=== PATIENT | female | born 1950 | race Caucasian/White ===

== ENCOUNTER 2025-05-12 06:40 | Outpatient (CLI) | payer MEDICARE, SELFPAY ==
[2025-05-12 06:45] LABS: Hematocrit 40.9 % (37.0-47.0); Hemoglobin 12.6 g/dL (12.2-16.2); Immature Granulocytes % 0.5 %; Mean Corpuscular HGB Conc 30.8 g/dL (31.8-35.4); Mean Corpuscular Hemoglobin 26.5 pg (27.0-31.2); Mean Corpuscular Volume 85.9 fl (81-99); Nucleated Red Blood Cells % 0 %; Platelet Count 209 K/mm3 (142-424); Red Blood Count 4.76 M/mm3 (4.20-5.40); Red Cell Distribution Width-SD 62.7 fL; White Blood Count 5.6 K/mm3 (4.8-10.8)
[2025-05-12 07:11] LABS: Albumin Level 4.0 g/dl (3.5-5.0); Chloride 102 mmol/L (98-107)
[2025-05-12 07:12] LABS: Potassium 4.1 mmoL/L (3.5-5.1); Sodium 138 mmol/L (136-145)
[2025-05-12 07:14] LABS: Alanine Aminotransferase 11 U/L (12-78); Aspartate Amino Transferase 23 U/L (14-36); Blood Urea Nitrogen 17 mg/dl (7-17); Creatinine,Serum 0.90 mg/dl (0.52-1.04); Estimated Glomerular Filt Rate 62 ml/min (>60); GFR (African American) 74 ML/MIN (>60)
[2025-05-12 07:15] LABS: Albumin/Globulin Ratio 1.6 (1.1-1.8); Alkaline Phosphatase 111 U/L (38-126); Anion Gap 10.1 mEq/L (5-15); Bilirubin,Total 0.4 mg/dl (0.2-1.3); Calcium 9.2 mg/dl (8.4-10.2); Carbon Dioxide 30 mmol/L (22.0-30.0); Cholesterol 210 mg/dl (140-200); Globulin 2.5 g/dL (1.3-3.2); Glucose 101 mg/dl (74-100); HDL Cholesterol 57 mg/dl (40-60); Total Protein,Serum 6.5 g/dl (6.3-8.2); Triglycerides 142 mg/dl (30-150)
[2025-05-12 07:32] LABS: Free T4 (Free Thyroxine) 0.94 ng/dl (0.78-2.19)
[2025-05-12 07:45] LABS: Thyroid Stimulating Hormone 20.50 uIU/mL (0.465-4.68)
== END 2025-05-12 23:59 | disposition home or self-care (01) ==
PROVIDERS: PCP Family Medicine; Visit Provider Family Medicine
DX: E03.9 Hypothyroidism, unspecified (principal); E78.5 Hyperlipidemia, unspecified; I10 Essential (primary) hypertension; D50.9 Iron deficiency anemia, unspecified
CPT/HCPCS: 36415; 80053; 80061; 84439; 84443; 85025

== ENCOUNTER 2025-06-11 08:07 | Outpatient (CLI) | payer MEDICARE, SELFPAY ==
[2025-06-11 08:44] LABS: Free T4 (Free Thyroxine) 1.47 ng/dl (0.78-2.19)
[2025-06-11 08:45] LABS: Cholesterol 90 mg/dl (140-200); HDL Cholesterol 47 mg/dl (40-60); Triglycerides 94 mg/dl (30-150)
[2025-06-11 09:14] LABS: Thyroid Stimulating Hormone 5.12 uIU/mL (0.465-4.68)
== END 2025-06-11 23:59 | disposition home or self-care (01) ==
PROVIDERS: PCP Nurse Practitioner Family; Visit Provider Nurse Practitioner Family
DX: E03.9 Hypothyroidism, unspecified (principal); E78.5 Hyperlipidemia, unspecified
CPT/HCPCS: 36415; 80061; 84439; 84443

== ENCOUNTER 2025-08-03 08:50 | Observation (INO) | payer MEDICARE, SELFPAY ==
[2025-08-03] VITALS (14 sets, daily range): BP systolic 115–140; BP diastolic 55–78; PULSE 77–112; RESP 12–20; TEMP 36.8–37.2; O2SAT 89–97; BMI 22.4
--- NOTE | 2025-08-03 08:42 | HMH.EDGENADL ---
Discharge Plan Disposition Patient Disposition: Admitted Condition: Good Clinical Impressions Clinical Impression: COPD exacerbation Discharge ED Provider: Sherlyn Selby General Adult HPI General Chief complaint: Shortness of Breath/Dyspnea Stated complaint: shortness of air, [place] Time Seen by Provider: 08/03/25 08:51 History of Present Illness HPI narrative: Pt is a 75 yo with PMH of cirrhosis, dementia, mood disorder, physical debility, hypothyroidism, COPD, cigarette smoking, degenerative cervical spine disease, GERD, iron deficiency anemia, right hip arthroplasty, diverticulosis, hiatal hernia presents with SOA. Patient reports that over the last week she has been increasingly short of breath. Cough is productive but nonbloody. Decreased p.o. intake over the last week without abdominal pain vomiting. No chest pain. Subjective fever Related Data Home Medications ?Medication ?Instructions ?Recorded ?Confirmed acetaminophen 500 mg capsule 500 mg PO Q8HP PRN Mild Pain 05/01/25 08/03/25 (Scale Score 1-4) bisacodyl 10 mg rectal suppository 10 mg DE DAILYP PRN Constipation 05/01/25 08/03/25 ferrous fumarate 324 mg (106 mg 324 mg PO DAILY 05/01/25 08/03/25 iron) tablet ipratropium 0.5 mg-albuterol 3 mg 3 ml inhalation Q6HP PRN Shortness 05/01/25 08/03/25 (2.5 mg base)/3 mL nebulization Of Breath soln melatonin 3 mg tablet 6 mg PO HS 05/01/25 08/03/25 methocarbamol 500 mg tablet 1,000 mg PO QID 05/01/25 08/03/25 pantoprazole 40 mg tablet,delayed 40 mg PO DAILY 05/01/25 08/03/25 release (Protonix) quetiapine 100 mg tablet (Seroquel) 100 mg PO HS 05/01/25 08/03/25 lorazepam 0.5 mg tablet (Ativan) 0.5 mg PO TID 06/11/25 08/03/25 escitalopram oxalate 5 mg tablet 5 mg PO DAILY 08/03/25 08/03/25 oxycodone 5 mg tablet 5 mg PO Q6HP PRN Moderate Pain 08/03/25 08/03/25 (Scale Score 5-6) polyethylene glycol 3350 17 17 g PO DAILYP PRN Constipation 08/03/25 08/03/25 gram/dose oral powder (Miralax) rosuvastatin 20 mg tablet 20 mg PO HS 08/03/25 08/03/25 Previous Rx's ?Medication ?Instructions ?Recorded levothyroxine 125 mcg tablet 125 mcg PO DAILY #30 tabs 05/13/25 (Synthroid) gabapentin 100 mg capsule 200 mg (2 x 100 mg) PO TID #180 06/02/25 caps Allergies Allergy/AdvReac Type Severity Reaction Status Date / Time levofloxacin (From Levaquin) Allergy Intermediate Verified 07/09/25 16:48 Penicillins (PCN) Allergy Unknown Verified 07/08/25 15:55 PFSH COUNTS INCLUDE 234 BEDS AT THE [facility] Disclaimer: The information contained in this section may have been updated after the patient was seen, as this information can be updated by other users. Medical History (Updated 08/03/25 @ 11:48 by Julisa Nguyen RN) Pneumonia Hypothyroidism Degenerative disc disease, cervical Anemia, iron deficiency GERD (gastroesophageal reflux disease) Diverticula of colon Hyperlipemia Impaired decision making Mood disorder Dementia Cirrhosis of liver HTN (hypertension) Surgical History History of arthroplasty of right hip Social History Smoking Status: Never smoker alcohol intake: never current occupational status: retired Travel in the last 8 weeks?: None Have you lived/traveled outside [place] in past 30 days?: No Contact w/someone who lives/traveled outside US past 30 days?: No Exposure to someone with infectious disease in past 14 days?: No Do you have a fever (greater than 100.4 F or 38 C)?: No Have you tested positive for COVID-19?: No Exposed to someone with COVID-19 in past 14 days?: No Do you have a sore throat?: No Do you have a cough?: No Do you have any weakness?: No Do you have any diarrhea?: No Are you experiencing any unusual bleeding?: No Do you have any muscle aches/pain?: No Do you have any abdominal pain?: No Are you experiencing loss of taste or smell?: No Other Medical History Have you received the Pneumonia Vaccine: No ROS Obtained: Yes All systems reviewed & no additional complaints except as documented Physical Exam General General appearance: alert and in no apparent distress ENT ENT exam: Present normal exam, normal oropharynx and mucous membranes moist Chest Chest inspection: Present normal inspection and symmetric chest wall rise Respiratory Respiratory exam: Present wheezes Cardiovascular Cardiovascular exam: Present regular rate and normal rhythm Abdominal Exam Abdominal exam: Present soft; Absent tenderness Extremities Exam Extremities exam: Absent edema Neurological Exam Neurological exam: Present alert; Absent oriented X3 (Oriented to name but not place or time per chart review appears to be at baseline) Medical Decision Making Medical Records Screening: Per USPSTF and CDC recommendations, given the prevalence of disease in our region, it is our hospital?s policy to screen for HIV and viral Hepatitis for all patients aged 18 and over and those with ongoing risk factors. Miller Inquiry Pt receiving controlled substance: No Vital Signs: 08/03/25 08:53 08/03/25 09:00 08/03/25 09:06 Temperature 99 F Temperature Source Oral Pulse Rate 89 89 Pulse Rate [Right Radial] 90 Respiratory Rate 20 Blood Pressure 115/68 116/65 Blood Pressure [Right Arm] 115/68 Blood Pressure Mean [Right Arm] 83 Blood Pressure Source Blood Pressure Source [Right Arm] Automatic Cuff Blood Pressure Position Blood Pressure Position [Right Arm] Supine 02 Sat by Pulse Oximetry 92 L 90 L 89 L Oxygen Delivery Method Nasal Cannula Nasal Cannula Room Air Oxygen Flow Rate (LPM) 3 3 08/03/25 09:30 08/03/25 09:30 08/03/25 09:30 Temperature Temperature Source Pulse Rate 80 86 82 Pulse Rate [Right Radial] Respiratory Rate 18 Blood Pressure 140/67 Blood Pressure [Right Arm] Blood Pressure Mean [Right Arm] Blood Pressure Source Blood Pressure Source [Right Arm] Blood Pressure Position Blood Pressure Position [Right Arm] 02 Sat by Pulse Oximetry 97 Oxygen Delivery Method Nasal Cannula Oxygen Flow Rate (LPM) 3 08/03/25 10:00 08/03/25 10:30 08/03/25 11:00 Temperature Temperature Source Pulse Rate 77 83 108 H Pulse Rate [Right Radial] Respiratory Rate 19 17 12 Blood Pressure 117/57 L 126/55 L Blood Pressure [Right Arm] Blood Pressure Mean [Right Arm] Blood Pressure Source Blood Pressure Source [Right Arm] Blood Pressure Position Blood Pressure Position [Right Arm] 02 Sat by Pulse Oximetry 96 93 L 94 L Oxygen Delivery Method Nasal Cannula Nasal Cannula Nasal Cannula Oxygen Flow Rate (LPM) 2 2 2 08/03/25 11:30 08/03/25 11:46 08/03/25 12:00 Temperature 98.9 F 98.2 F Temperature Source Oral Oral Pulse Rate 78 95 H Pulse Rate [Right Radial] 80 Respiratory Rate 20 19 20 Blood Pressure 121/78 Blood Pressure [Right Arm] 121/58 L Blood Pressure Mean [Right Arm] 79 Blood Pressure Source Automatic Cuff Blood Pressure Source [Right Arm] Automatic Cuff Blood Pressure Position Supine Blood Pressure Position [Right Arm] 02 Sat by Pulse Oximetry 95 96 Oxygen Delivery Method Nasal Cannula Nasal Cannula Nasal Cannula Oxygen Flow Rate (LPM) 2 2 2 Lab Data Lab Results 08/03/25 09:05: WBC 5.2, RBC 4.95, Hgb 14.3, Hct 46.4, MCV 93.7, MCH 28.9, MCHC 30.8 L, RDW 14.3, Plt Count 147, MPV 10.1, Neut % (Auto) 61.5, Lymph % (Auto) 28.7, [place] % (Auto) 5.9, Eos % (Auto) 3.1, Baso % (Auto) 0.6, Neut # (Auto) 3.2, Lymph # (Auto) 1.5, [place] # (Auto) 0.3, Eos # (Auto) 0.2, Baso # (Auto) 0.0, VBG pH 7.36, VBG pCO2 53.9 H, VBG pO2 57.0 H, VBG HCO3 29.8, VBG Total CO2 31.4 H, VBG O2 Saturation 89.1 H, VBG Base Excess 4.3 H, VBG Lactic Acid 1.4, Sodium 141, Potassium 4.2, Chloride 99, Carbon Dioxide 35 H, Anion Gap 11.2, BUN 14, Creatinine 0.90, Estimated Creat Clear 48, Estimated GFR 61, Est GFR ( Amer) 74, Glucose 115 H, Lactate 1.1, Calcium 9.3, Total Bilirubin 0.8, AST 31, ALT 14, Alkaline Phosphatase 97, Troponin I < 0.01, Total Protein 7.6, Albumin 5.0, Globulin 2.6, Albumin/Globulin Ratio 1.9 H, HCV Ab [place] w/Rflx PCR Qn Negative, HIV Ag/Ab Combo Qual Negative 08/03/25 09:11: Chlamy pneumoniae PCR Not detected, Adenovirus (PCR) Not detected, B. pertussis DNA (PCR) Not detected, Coronavirus OC43 (PCR) Not detected, Coronavirus HKU1 (PCR) Not detected, Coronavirus 229E (PCR) Not detected, SARS-CoV-2 (PCR) Not detected 08/03/25 09:11: SARS-CoV-2 (PCR) Not detected, Coronavirus NL63 (PCR) Not detected, Human Metapneumovir PCR Not detected, Influenza A (H1) PCR Not detected, Influ A (H1N1/09) PCR Not detected, Influenza A (H3) PCR Not detected, Influenza Type A (PCR) Not detected, Influenza A Untype (PCR) Not detected, Influenza Type B (PCR) Not detected 08/03/25 09:11: Influenza Type B (PCR) Not detected, M. pneumoniae (PCR) Not detected, Parainfluenza 1 (PCR) Not detected, Parainfluenza 2 (PCR) Not detected, Parainfluenza 3 (PCR) Not detected, Parainfluenza 4 (PCR) Not detected, RSV (PCR) Not detected, Entero/Rhino (PCR) Detected A 08/03/25 09:05 08/03/25 09:05 Orders (Tests/Meds): ED MEDICATIONS Generic Name Dose Route Start Last Admin Trade Name Freq PRN Reason Stop Dose Admin Acetaminophen 650 mg 08/03/25 12:55 Acetaminophen 325mg Tab PO 09/02/25 12:54 Q4HP PRN Fever or Mild Pain (1-3) Albuterol/Ipratropium 3 ml 08/03/25 18:00 Ipratropium/Albuterol 3 Ml [facility] 09/02/25 17:59 Q6RT [facility] Budesonide 0.5 mg 08/03/25 18:00 Budesonide 0.5mg/2ml Neb 09/02/25 17:59 BIDRT [facility] Enoxaparin Sodium 40 mg 08/04/25 09:00 Enoxaparin 40mg/0.4ml Syringe SUBCUT 09/03/25 08:59 DAILY STEPHANIE Azithromycin 500 mg/ Sodium 250 mls @ 250 mls/hr 08/03/25 11:00 08/03/25 12:23 Chloride IV 08/13/25 10:59 Infused Q24H STEPHANIE Infusion Nicotine 21 mg 08/03/25 13:03 Nicotine 21mg/24hr Patch TD 09/02/25 13:02 DAILYP PRN Nicotine Cravings Ondansetron HCl 4 mg 08/03/25 13:03 Ondansetron 4mg/2ml Vial IV 09/02/25 13:02 Q6HP PRN Nausea Prednisone 40 mg 08/04/25 09:00 Prednisone 20mg Tab PO 09/03/25 08:59 DAILY STEPHANIE Sodium Chloride 10 ml 08/03/25 13:23 Sodium Chloride 0.9% 10ml Flush Syringe IV 09/02/25 13:22 NEEDED PRN Maintain IV Site Discontinued Medications Generic Name Dose Route Start Last Admin Trade Name Freq PRN Reason Stop Dose Admin Acetaminophen 1,000 mg 08/03/25 09:05 08/03/25 09:19 Acetaminophen 1,000mg/100ml Vial IV 08/03/25 09:06 1,000 mg ONCE ONE Administration Albuterol/Ipratropium 9 ml 08/03/25 09:06 08/03/25 09:21 Ipratropium/Albuterol 3 Ml Neb IH 08/03/25 09:07 9 ml ONCE ONE Administration Ceftriaxone Sodium 2 gm/ 100 mls @ 200 mls/hr 08/03/25 09:04 08/03/25 10:18 Sodium Chloride IV 08/03/25 09:33 Infused ONCE ONE Infusion Lactated Ringer's 1,830 mls @ 915 mls/hr 08/03/25 09:04 08/03/25 11:57 Lactated Ringer's 1000 Ml Bag 30 ml/kg infuse over 2 hr (1830 ml) 08/03/25 11:03 Infused IV Infusion .Q2H ONE Protocol Iopamidol 70 ml 08/03/25 10:09 08/03/25 10:10 Iopamidol-370 (76%);100ml Bottle IV 08/03/25 10:10 70 ml ONCE ONE Administration Ketorolac Tromethamine 15 mg 08/03/25 09:05 08/03/25 09:22 Ketorolac 15mg/Ml Vial IV 08/03/25 09:06 15 mg ONCE ONE Administration Methylprednisolone Sodium Succinate 125 mg 08/03/25 09:05 08/03/25 09:22 Methylprednisolone Sod Succ 125mg Vial IV 08/03/25 09:06 125 mg ONCE ONE Administration Sodium Chloride 10 ml 08/03/25 10:09 08/03/25 10:10 Sodium Chloride 0.9% 10ml Syr (Rad Only) IV 09/02/25 10:08 10 ml NEEDED PRN Administration Maintain IV Site Sodium Chloride 50 ml 08/03/25 10:09 08/03/25 10:10 0.9 % Sodium Chloride 50 Ml Vial IV 08/03/25 10:10 50 ml ONCE ONE Administration ORDERS Category Date Time Status CT angio chest PE protocol Stat Cat Scan 08/03/25 09:56 Completed XR chest portable Stat Exams 08/03/25 09:04 Completed Complete Blood Count Auto Diff Stat Lab 08/03/25 09:05 Completed Comprehensive Metabolic Panel Stat Lab 08/03/25 09:05 Completed Full Resp Panel w/COVID ([facility]) Routine Lab 08/03/25 09:11 Completed HIV Combo Stat Lab 08/03/25 09:05 Completed Hepatitis C Ab Qual. W/ RFX Stat Lab 08/03/25 09:05 Completed Lactic Acid Stat Lab 08/03/25 09:05 Completed Rapid PCR Covid and Flu A/B Stat Lab 08/03/25 09:11 Completed Trop I [Troponin I] Stat Lab 08/03/25 09:05 Completed Troponin I Q3H Lab 08/03/25 11:38 Completed Troponin I Q3H Lab 08/03/25 15:15 Ordered Blood Culture Stat Micro 08/03/25 09:09 Received VBG [Venous Blood Gas] Stat RT 08/03/25 09:05 Completed HEART Score History (anamnesis): Slightly suspicious ECG: Normal Age: >65 years Risk factors: 1-2 risk factors Troponin: </= normal limit HEART Score: 3 Medical Decision Narrative: In summary, this 75-year-old female presents to the emergency department today with cough shortness of breath. On initial evaluation patient is hemodynamically stable requiring me. Overall requiring maintaining oxygen saturation greater than 88% borderline febrile. Differential diagnosis includes but is not limited to COPD exacerbation PE ACS pneumonia. Based on these concerns, I ordered sepsis bundle CBC CMP VBG lactate chest x-ray blood cultures nasopharyngeal respiratory panel EKG. ECG personally interpreted demonstrates normal sinus rhythm no ST elevation ST depression T wave inversions concerning for ischemia Patient received 30 cc/kg lactated Ringer's bolus 3 DuoNebs Methylpred ceftriaxone azithromycin Toradol and IV Tylenol for treatment. Labs personally reviewed demonstrate rhino enteropositive hyperglycemia no respiratory acidosis XR personally interpreted demonstrates no focal consolidation. CT imaging personally interpreted demonstrate no saddle PE. I had an interactive discussion with Dr. Lovett with recommendations to admit for further management of COPD exacerbation likely triggered by rhino enterovirus. Critical Care Critical Care Time Critical Care Time: Yes Attestation: On 08/03/25, the high probability of a clinically significant, sudden or life threatening deterioration of the following system(s) required my full and direct attention, intervention and personal management. The time I documented below is in addition to time spent performing reported procedures but includes the following listed in this critical care notation. Total Time Total Critical Care Time: 32 (Hypoxic respiratory failure)
--- NOTE | 2025-08-03 09:04 | XR_ITS ---
PROCEDURE INFORMATION: Exam: XR Chest Exam date and time: 08/03/2025 9:31 AM Age: 75 years old Clinical indication: Shortness of breath; Additional info: SOA, smoker TECHNIQUE: Imaging protocol: Radiologic exam of the chest. Views: 1 view. COMPARISON: No relevant prior studies available. FINDINGS: Lungs: No consolidation. Mild left basilar subsegmental atelectasis. Pleural spaces: Unremarkable. No pleural effusion. No pneumothorax. Heart/Mediastinum: Unremarkable. No cardiomegaly. Bones/joints: Unremarkable. IMPRESSION: No consolidation. Mild left basilar subsegmental atelectasis.
--- NOTE | 2025-08-03 09:12 | PC.NURSE ---
3liters nc applied due to oxygen sat at 87%
[2025-08-03 09:15] LABS: Coronavirus 19, PCR Not Detected (NotDetected); Influenza A, PCR Not Detected (NotDetected); Influenza B, PCR Not Detected (NotDetected)
[2025-08-03 09:15] LABS: Hematocrit 46.4 % (37.0-47.0); Hemoglobin 14.3 g/dL (12.2-16.2); Immature Granulocytes % 0.2 %; Mean Corpuscular HGB Conc 30.8 g/dL (31.8-35.4); Mean Corpuscular Hemoglobin 28.9 pg (27.0-31.2); Mean Corpuscular Volume 93.7 fl (81-99); Nucleated Red Blood Cells % 0 %; Platelet Count 147 K/mm3 (142-424); Red Blood Count 4.95 M/mm3 (4.20-5.40); Red Cell Distribution Width-SD 49.1 fL; White Blood Count 5.2 K/mm3 (4.8-10.8)
--- NOTE | 2025-08-03 09:15 | ECG_ITS ---
APPROVED REPORT Exam: Resting ECG HR:82 bpm ECG Measurements Heart Rate [address] 137 P 68 QRSd 86 QRS 75 QT 360 T 75 QTc 399 Conclusion SINUS RHYTHM NORMAL ECG UNCONFIRMED REPORT Electronically signed by : CHERI MORA, 08/04/2025 02:49:23
[2025-08-03 09:16] LABS: Lactate Venous 1.4 mmol/L (0.4-2.0); VBG HCO3 29.8 mmol/L (23-30); VBG PH 7.36 mmol/L (7.31-7.41); VBG PO2 57.0 mmol/L (28-40)
[2025-08-03 09:19] LABS: Adenovirus,PCR Not Detected (NotDetected); Chlamydophila Pneumoniae, PCR Not Detected (NotDetected); Coronavirus 19, PCR Not Detected (NotDetected); Coronovirus HKU1,PCR Not Detected (NotDetected); Influenza A, PCR Not Detected (NotDetected); Influenza AH1, 2009 Not Detected (NotDetected); Influenza AH1, PCR Not Detected (NotDetected); Influenza AH3,PCR Not Detected (NotDetected); Influenza B, PCR Not Detected (NotDetected); Mycoplasma Pneumoniae, PCR Not Detected (NotDetected); Parainfluenza 1, PCR Not Detected (NotDetected); Parainfluenza 2, PCR Not Detected (NotDetected); Parainfluenza 3, PCR Not Detected (NotDetected); Parainfluenza 4, PCR Not Detected (NotDetected)
[2025-08-03] MEDS: ACETAMINOPHEN 1,000MG/100ML VIAL 1000 MG IV (09:19)
[2025-08-03 09:20] LABS: VBG PCO2 53.9 mmol/L (35-51)
[2025-08-03] MEDS: LACTATED RINGERS 915 ML IV (09:20)
[2025-08-03] MEDS: IPRATROPIUM/ALBUTEROL 3 ML NEB 9 ML IH (09:21)
[2025-08-03] MEDS: KETOROLAC 15MG/ML VIAL 15 MG IV (09:22)
[2025-08-03] MEDS: METHYLPREDNISOLONE SOD SUCC 125MG VIAL 125 MG IV (09:22)
[2025-08-03 09:23] LABS: Chloride 99 mmol/L (98-107); Potassium 4.2 mmoL/L (3.5-5.1); Sodium 141 mmol/L (136-145)
[2025-08-03 09:25] LABS: Blood Urea Nitrogen 14 mg/dl (7-17); Creatinine Clearance Estimated 48 mL/min (50-200); Creatinine,Serum 0.90 mg/dl (0.52-1.04); Estimated Glomerular Filt Rate 61 ml/min (>60); GFR (African American) 74 ML/MIN (>60)
[2025-08-03 09:26] LABS: Alanine Aminotransferase 14 U/L (12-78); Alkaline Phosphatase 97 U/L (38-126); Anion Gap 11.2 mEq/L (5-15); Aspartate Amino Transferase 31 U/L (14-36); Bilirubin,Total 0.8 mg/dl (0.2-1.3); Calcium 9.3 mg/dl (8.4-10.2); Carbon Dioxide 35 mmol/L (22.0-30.0); Glucose 115 mg/dl (74-100); Total Protein,Serum 7.6 g/dl (6.3-8.2)
[2025-08-03 09:43] LABS: Troponin I < 0.01 ng/ml (0.00-0.034)
[2025-08-03 09:44] LABS: Albumin Level 5.0 g/dl (3.5-5.0); Albumin/Globulin Ratio 1.9 (1.1-1.8); Globulin 2.6 g/dL (1.3-3.2)
--- NOTE | 2025-08-03 09:56 | CT_ITS ---
PROCEDURE INFORMATION: Exam: CTA Chest With Contrast Exam date and time: 08/03/2025 10:07 AM Age: 75 years old Clinical indication: Shortness of breath; Additional info: SOA, cough x 1 week, smoker TECHNIQUE: Imaging protocol: Computed tomographic angiography of the chest with contrast. Exam focused on the arteries. 3D rendering (Not supervised by radiologist): MIP and/or 3D reconstructed images were created by the technologist. Radiation optimization: All CT scans at this facility use at least one of these dose optimization techniques: automated exposure control; mA and/or kV adjustment per patient size (includes targeted exams where dose is matched to clinical indication); or iterative reconstruction. Contrast material: ISO 370; Contrast volume: 70 ml; Contrast route: INTRAVENOUS (IV); COMPARISON: CR XR CHEST PORTABLE 08/03/2025 9:31 AM FINDINGS: Pulmonary arteries: Negative for acute pulmonary embolism. Aorta: Unremarkable. No aortic aneurysm. No aortic dissection. Lungs: Mild bronchial wall thickening to both lower lobes, right worse than left. Nonspecific bronchitis. Emphysema. Calcified granuloma in the superior segment right lower lobe. No focal consolidation. Mild subsegmental atelectasis both lung bases. Pleural spaces: Unremarkable. No pneumothorax. No pleural effusion. Heart: Unremarkable. No cardiomegaly. No pericardial effusion. Lymph nodes: Multiple coarsely calcified mediastinal and hilar lymph nodes. Bones/joints: Unremarkable. No acute fracture. Soft tissues: Unremarkable. IMPRESSION: 1. Negative for acute pulmonary embolism. 2. Mild bronchial wall thickening to both lower lobes, right worse than left. Nonspecific bronchitis. 3. Mild subsegmental atelectasis both lung bases. COMMENTS: The presence of pulmonary emphysema on CT is an independent risk factor for lung cancer. In the absence of a history or active diagnosis of lung cancer, it is recommended that this patient with emphysema be evaluated for enrollment in a low dose CT lung cancer screening program.
[2025-08-03] MEDS: IOPAMIDOL-370 (76%);100ML BOTTLE 70 ML IV (10:10)
[2025-08-03] MEDS: 0.9 % SODIUM CHLORIDE 50 ML VIAL IV (10:10)
[2025-08-03] MEDS: SODIUM CHLORIDE 0.9% 10ML SYR (RAD ONLY) 10 ML IV (10:10)
[2025-08-03 11:04] LABS: Hepatitis C Ab Qual. W/ RFX NEGATIVE (Negative)
[2025-08-03] MEDS: AZITHROMYCIN 500 MG in 0.9 % SODIUM CHLORIDE 250 ML 250 MG IV (11:23)
--- NOTE | 2025-08-03 11:29 | PC.NURSE ---
house notified for admission
--- NOTE | 2025-08-03 11:40 | PC.NURSE ---
attempted to call report. nurse will call back
[2025-08-03 12:16] LABS: Troponin I < 0.01 ng/ml (0.00-0.034)
--- NOTE | 2025-08-03 12:54 | P.HP_ITS ---
History of Present Illness *Admission Date: 08/03/25 *Reason for visit:: Progressive coughing *History of present illness: Joy Major is a 75-year-old female with medical history significant for current tobacco smoker, hypothyroidism, iron deficiency anemia, anxiety/depression who presented with 4-day onset of nonproductive cough. She states it got so bad she proceeded to the ER today. She denies shortness of breath, chest pain, fever/chills, abdominal pain. She states she has no official diagnosis COPD, but has smoked for many years. No inhalers at home. Lives with son at home. Workup in the ED significant for WBC 5.2, compensated VBG, full respiratory panel positive for rhinovirus. CTA chest suggestive of bronchial wall thickening/bronchitis without focal consolidation. She received 1.8 L LR bolus, DuoNebs x 3, Toradol, Solu-Medrol 125 mg, ceftriaxone, azithromycin continues to have recent airway. Requiring 3 L nasal cannula, new requirement. Given these findings, ED provider discussed case with me and decided to admit patient for acute hypoxic respiratory failure secondary to presumed COPD exacerbation. [facility] Disclaimer: The information contained in this section may have been updated after the patient was seen, as this information can be updated by other users. Medical History (Updated 08/03/25 @ 11:48 by Julisa Nguyen RN) Pneumonia Hypothyroidism Degenerative disc disease, cervical Anemia, iron deficiency GERD (gastroesophageal reflux disease) Diverticula of colon Hyperlipemia Impaired decision making Mood disorder Dementia Cirrhosis of liver HTN (hypertension) Surgical History History of arthroplasty of right hip Social History Smoking Status: Never smoker alcohol intake: never current occupational status: retired Travel in the last 8 weeks?: None Have you lived/traveled outside US in past 30 days?: No Contact w/someone who lives/traveled outside US past 30 days?: No Exposure to someone with infectious disease in past 14 days?: No Do you have a fever (greater than 100.4 F or 38 C)?: No Have you tested positive for COVID-19?: No Exposed to someone with COVID-19 in past 14 days?: No Do you have a sore throat?: No Do you have a cough?: No Do you have any weakness?: No Do you have any diarrhea?: No Are you experiencing any unusual bleeding?: No Do you have any muscle aches/pain?: No Do you have any abdominal pain?: No Are you experiencing loss of taste or smell?: No Other Medical History Have you received the Flu Vaccine for this season: No Have you received the Pneumonia Vaccine: Yes Meds Home Medications and Allergies Home Medications ?Medication ?Instructions ?Recorded ?Confirmed ?Type acetaminophen 500 mg capsule 500 mg PO Q8HP PRN Mild P ain 05/01/25 08/03/25 History (Scale Score 1-4) bisacodyl 10 mg rectal suppository 10 mg CO DAILYP PRN Constipation 05/01/25 08/03/25 History ferrous fumarate 324 mg (106 mg 324 mg PO DAILY 08/03/25 History iron) tablet ipratropium 0.5 mg-albuterol 3 mg 3 ml inhalation Q6HP PRN Shortness 05/01/25 08/03/25 History (2.5 mg base)/3 mL nebulization Of Breath soln melatonin 3 mg tablet 6 mg PO HS 05/01/25 08/03/25 History methocarbamol 500 mg tablet 1,000 mg PO QID 05/01/25 1 10/03/24 History pantoprazole 40 mg tablet,delayed 40 mg PO DAILY 05/0108/03/25 History release (Protonix) quetiapine 100 mg tablet (Seroquel) 100 mg PO HS 05/0108/03/25 History levothyroxine 125 mcg tablet 125 mcg PO DAILY #30 tabs 05/13/25 08/03/25 Rx (Synthroid) gabapentin 100 mg capsule 200 mg (2 x 100 mg) PO TID # 180 06/02/25 08/03/25 Rx caps lorazepam 0.5 mg tablet (Ativan) 0.5 mg PO TID 5 08/03/25 History escitalopram oxalate 5 mg tablet 5 mg PO DAILY 5 08/03/25 History oxycodone 5 mg tablet 5 mg PO Q6HP PRN Moderate Pa in 08/03/25 08/03/25 History (Scale Score 5-6) polyethylene glycol 3350 17 17 g PO DAILYP PRN Constip ation 08/03/25 08/03/25 History gram/dose oral powder (Miralax) rosuvastatin 20 mg tablet 20 mg PO HS 08/03/25 5 History New Prescriptions to Start Prescriptions: Allergies Allergy/AdvReac Type Severity Reaction Status Date / Time [facility] ([facility] Allergy Intermediate Verified 07/09/25 16:48 Penicillins (PCN) Allergy Unknown Verified 07/08/25 15:55 Exam Data for Last 24 hours Vital signs and Labs for Last 24 Hours: Temp Pulse Resp BP Pulse Ox O2 Del Method O2 Flow Rate 98.2 F 80 20 121/58 L 96 Nasal Cannula 2 08/03/25 12:00 08/03/25 12:00 08/03/25 12:00 08/03/25 12:00 08/03/25 12:00 08/03/25 12:00 08/03/25 12:00 Laboratory Results - last 24 hr 08/03/25 09:05: WBC 5.2, RBC 4.95, Hgb 14.3, Hct 46.4, MCV 93.7, MCH 28.9, MCHC 30.8 L, RDW 14.3, Plt Count 147, MPV 10.1, Neut % (Auto) 61.5, Lymph % (Auto) 28.7, [place] % (Auto) 5.9, Eos % (Auto) 3.1, Baso % (Auto) 0.6, Neut # (Auto) 3.2, Lymph # (Auto) 1.5, [place] # (Auto) 0.3, Eos # (Auto) 0.2, Baso # (Auto) 0.0, VBG pH 7.36, VBG pCO2 53.9 H, VBG pO2 57.0 H, VBG HCO3 29.8, VBG Total CO2 31.4 H, VBG O2 Saturation 89.1 H, VBG Base Excess 4.3 H, VBG Lactic Acid 1.4, Sodium 141, Potassium 4.2, Chloride 99, Carbon Dioxide 35 H, Anion Gap 11.2, BUN 14, Creatinine 0.90, Estimated Creat Clear 48, Estimated GFR 61, Est GFR ( Amer) 74, Glucose 115 H, Lactate 1.1, Calcium 9.3, Total Bilirubin 0.8, AST 31, ALT 14, Alkaline Phosphatase 97, Troponin I < 0.01, Total Protein 7.6, Albumin 5.0, Globulin 2.6, Albumin/Globulin Ratio 1.9 H, HCV Ab [place] w/Rflx PCR Qn Nega tive, HIV Ag/Ab Combo Qual Negative 08/03/25 09:11: Chlamy pneumoniae PCR Not detected, Adenovirus (PCR) Not detected, B. pertussis DNA (PCR) Not detected, Coronavirus OC43 (PCR) Not detected, Coronavirus HKU1 (PCR) Not detected, Coronavirus 229E (PCR) Not detected, SARS-CoV-2 (PCR) Not detected 08/03/25 09:11: SARS-CoV-2 (PCR) Not detected, Coronavirus NL63 (PCR) Not detected, Human Metapneumovir PCR Not detected, Influenza A (H1) PCR Not detected, Influ A (H1N1/09) PCR Not detected, Influenza A (H3) PCR Not detected, Influenza Type A (PCR) Not detected, Influenza A Untype (PCR) Not detected, Influenza Type B (PCR) Not detected 08/03/25 09:11: Influenza Type B (PCR) Not detected, M. pneumoniae (PCR) Not detected, Parainfluenza 1 (PCR) Not detected, Parainfluenza 2 (PCR) Not detected, Parainfluenza 3 (PCR) Not detected, Parainfluenza 4 (PCR) Not detected, RSV (PCR) Not detected, Entero/Rhino (PCR) Detected A 08/03/25 11:38: Troponin I < 0.01 I & O for Last 24 hours: Intake & Output 07/31/25 08/01/25 08/02/25 08/03/25 23:59 23:59 23:59 23:59 Intake Total Balance Weight 61.235 kg Constitutional Constitutional: no acute distress and chronically ill appearing *Routine HEENT Exam Head: Present normocephalic Eye: Present EOMI and PERRL ENT: Present mucous membranes moist *Routine Neck Exam Neck: Present supple; Absent lymphadenopathy *Routine Respiratory Exam Respiratory: Present wheezes and diminished air movement; Absent CTA bilaterally *Routine Cardiovascular Exam Cardiovascular: Present RRR *Routine Abdominal Exam Abdominal: Present soft and normoactive bowel sounds; Absent tenderness *Routine Rectal Exam Rectal:: deferred *Routine Genitalia Exam Genitalia:: deferred *Routine Extremities Exam Extremities: Absent cyanosis, clubbing or edema *Routine Skin Exam Skin: Present warm; Absent rash *Routine Neurological Exam Neurological: Present alert and oriented X3 Assessment and Plan *Assessment and plan (1) COPD exacerbation: Status: Acute Category: Medical Code(s): J44.1 - Chronic obstructive pulmonary disease with (acute) exacerbation Plan Joy Major is a 75-year-old female with medical history significant for current tobacco smoker, hypothyroidism, iron deficiency anemia, anxiety/depression who presented with 4-day onset of nonproductive cough. She states it got so bad she proceeded to the ER today. She denies shortness of breath, chest pain, fever/chills, abdominal pain. She states she has no official diagnosis COPD, but has smoked for many years. No inhalers at home. Lives with son at home. Workup in the ED significant for WBC 5.2, compensated VBG, full respiratory panel positive for rhinovirus. CTA chest suggestive of bronchial wall thickening/bronchitis without focal consolidation. She received 1.8 L LR bolus, DuoNebs x 3, Toradol, Solu-Medrol 125 mg, ceftriaxone, azithromycin continues to have recent airway. Requiring 3 L nasal cannula, new requirement. Given these findings, ED provider discussed case with me and decided to admit patient for acute hypoxic respiratory failure secondary to presumed COPD exacerbation. #Acute hypoxic respiratory failure #Suspected COPD exacerbation #Rhinoviral infection ? Presented with 4-day onset of nonproductive cough, full respiratory panel positive for rhinoviral infection. CTA chest without signs of infection. WBC 5.2, no signs of sepsis. ? Continues to have moderate diffuse wheezing with restricted air movement. Requiring 3 L nasal cannula. ? Started DuoNebs every 6 hours, Pulmicort twice daily. ? Started prednisone 40 mg day 2/5 starting tomorrow. ? Started azithromycin 250 mg day 2/5 starting tomorrow. ? Follow-up sputum, blood cultures. ? Requiring 3 L nasal cannula, baseline room air. Wean as tolerated. ? Pulmonology consulted, pending further recommendations. With PFTs outpatient. #Hypothyroidism ? Continue home levothyroxine once reconciled. Follow-up TFTs. #Iron deficiency anemia ? Hold home iron supplementation during admission. #Anxiety/depression #Insomnia ? Resume home medications once reconciled. ? Started melatonin 5 mg nightly for insomnia. #GERD ? Continue home PPI. Full code DVT prophylaxis: Lovenox 40 mg Home medications: Restarted.
--- NOTE | 2025-08-03 12:56 | PC.NURSE ---
Bobby called for an update on the pt. I relayed that she was admitted for COPD exacerbation.
--- NOTE | 2025-08-03 13:08 | P.CONPHA_ITS ---
Pharmacy Intervention Comments: MEDICATION RECONCILIATION COMPLETED ON PATIENT USING MAR FROM [facility]. -NIDHI MALONEY, MIGDALIAD
--- NOTE | 2025-08-03 13:08 | HMH.PHAINT1 ---
Pharmacy Intervention Comments: MEDICATION RECONCILIATION COMPLETED ON PATIENT USING MAR FROM [facility]. -NIDHI MALONEY, MIGDALIAD
[2025-08-03 18:13] LABS: Thyroid Stimulating Hormone 0.48 uIU/mL (0.465-4.68)
[2025-08-03] MEDS: IPRATROPIUM/ALBUTEROL 3 ML NEB IH ×2 (18:21→23:50)
[2025-08-03] MEDS: BUDESONIDE 0.5MG/2ML NEB 0.5 MG IH (18:21)
[2025-08-03] MEDS: QUETIAPINE 100MG TABLET 100 MG PO (20:04)
[2025-08-03] MEDS: MELATONIN 5MG TABLET 5 MG PO (20:04)
--- NOTE | 2025-08-03 21:58 | PC.NURSE ---
pts daughter in law called stating she was returning a phone call from the hospital. unaware of who tryed to call. gave an update on pt. added contacts to pts chart. sekou smith- daughter in law, person to notify [phone] kelley smith- son, next of kin [phone]
[2025-08-04] VITALS (8 sets, daily range): BP systolic 109–136; BP diastolic 59–78; PULSE 79–94; RESP 16–24; TEMP 36.6–37.1; O2SAT 88–96; BMI 22.2
--- NOTE | 2025-08-04 05:42 | PC.NURSE ---
pt has been alert to self only this shift. yelling out t/o the night wanting a fucking cigarette or a joint ref cont pulse ox at this time. pt has not been physically aggressive only verbally then will apologize to staff and give a hug. pt very anxious early in shift, notified nurse prac and she restarted pts home ativan 0.5mg prn tid. administered per nov, pt responded well.
[2025-08-04 05:58] LABS: Hematocrit 39.8 % (37.0-47.0); Immature Granulocytes % 0.5 %; Mean Corpuscular HGB Conc 31.4 g/dL (31.8-35.4); Mean Corpuscular Hemoglobin 28.9 pg (27.0-31.2); Mean Corpuscular Volume 91.9 fl (81-99); Nucleated Red Blood Cells % 0 %; Platelet Count 157 K/mm3 (142-424); Red Blood Count 4.33 M/mm3 (4.20-5.40); Red Cell Distribution Width-SD 47.3 fL; White Blood Count 7.7 K/mm3 (4.8-10.8)
[2025-08-04 06:10] LABS: Chloride 102 mmol/L (98-107)
[2025-08-04 06:11] LABS: Albumin Level 4.5 g/dl (3.5-5.0); Potassium 3.6 mmoL/L (3.5-5.1); Sodium 142 mmol/L (136-145)
[2025-08-04 06:14] LABS: Alanine Aminotransferase 14 U/L (12-78); Albumin/Globulin Ratio 2.0 (1.1-1.8); Alkaline Phosphatase 88 U/L (38-126); Anion Gap 9.6 mEq/L (5-15); Aspartate Amino Transferase 29 U/L (14-36); Bilirubin,Total 0.5 mg/dl (0.2-1.3); Blood Urea Nitrogen 12 mg/dl (7-17); Calcium 9.0 mg/dl (8.4-10.2); Carbon Dioxide 34 mmol/L (22.0-30.0); Creatinine Clearance Estimated 48 mL/min (50-200); Creatinine,Serum 0.70 mg/dl (0.52-1.04); Estimated Glomerular Filt Rate 82 ml/min (>60); GFR (African American) 99 ML/MIN (>60); Globulin 2.2 g/dL (1.3-3.2); Glucose 116 mg/dl (74-100); Total Protein,Serum 6.7 g/dl (6.3-8.2)
[2025-08-04 06:30] LABS: Free T4 (Free Thyroxine) 1.39 ng/dl (0.78-2.19)
[2025-08-04] MEDS: BUDESONIDE 0.5MG/2ML NEB 0.5 MG IH (06:37)
[2025-08-04] MEDS: IPRATROPIUM/ALBUTEROL 3 ML NEB IH ×2 (06:37→13:06)
[2025-08-04 07:23] LABS: Hemoglobin 12.4 g/dL (12.2-16.2)
--- NOTE | 2025-08-04 08:13 | P.CONPHA_ITS ---
Pharmacy Intervention Comments: HOME MEDICATION LIST VERIFIED USING LIST FROM [facility]
--- NOTE | 2025-08-04 08:13 | HMH.PHAINT1 ---
Pharmacy Intervention Comments: HOME MEDICATION LIST VERIFIED USING LIST FROM [facility]
--- NOTE | 2025-08-04 08:22 | SW/DCPLANNER ---
Patient currently resides at [facility] level of care. Updated patient information has been faxed to Madeleine casillas/ Bobby Farrell. Discharge date is unknown at this time. CM will continue to follow up.
[2025-08-04] MEDS: AZITHROMYCIN 250MG TABLET 250 MG PO (09:11)
[2025-08-04] MEDS: LEVOTHYROXINE 125MCG (0.125MG) TAB 125 MCG PO (09:11)
--- NOTE | 2025-08-04 09:19 | HMH.OTEV ---
OT Evaluation Rehab OT IP Evaluation Start: 08/03/25 12:39 Freq: ONCE Status: Active Protocol: Document 08/04/25 09:11 JOAQUINA (Rec: 08/04/25 09:19 JOAQUINA [id number]) Rehab OT IP Assessment Subjective History Per HPI narrative: Pt is a 75 yo with PMH of cirrhosis, dementia, mood disorder, physical debility, hypothyroidism, COPD, cigarette smoking, degenerative cervical spine disease, GERD, iron deficiency anemia, right hip arthroplasty, diverticulosis, hiatal hernia presents with SOA. Patient reports that over the last week she has been increasingly short of breath. Cough is productive but nonbloody. Decreased p.o. intake over the last week without abdominal pain vomiting. No chest pain. Subjective fever Subjective We'll see what he does when he gets back. Pt supine in bed when therapy entered room. Pt agreed to OT eval this AM. Pt orient x3. Pt reported they live with son in home with steps to enter. Pt reported they are Ind in FM, but have been using a w/c for aprox over a month due to mx hospital stays. Pt reported Ind in ADLs and needs assist at times with IADLs. Pt reported they have a SC and are not normally on O2. Pt reported they have not drove in 3 yrs. Pt agreed to FM task. Pt went from supine in EOB Ind. Pt then able to complete dynamic sitting balance on EOB with SBA and don socks. Pt then attempted to complete a STS with Mod A x1, however, pt demo unsteady balance and was not able to hold static standing balance and sat back on EOB. Pt able to move back to supine position Ind. Pt left supine in bed with call light and all other needs within reach. Objective Patient Orientation Person,Place,Birthday Right Upper WFL Extremity Gross ROM Left Upper Extremity WFL Gross ROM Bed Mobility bed mobility-scooting,bed mobility - supine/sit Assist Level Independent Transfer Training Sit/Stand Transfer Assist Level Moderate x 1 (50% assist) Chair Transfer Sit to/from Ambulatory Technique Chair Transfer Rolling Walker Assistive Devices Lower Body Dressing Standby Assistance Ability Rehab OT IP prob,goals,plan Problems Date of Evaluation: 08/04/25 OT IP Problems Bed Mobility,Transfers,Balance,Self care,Safety Rehab Potential Rehab Potential Good Equipment Needs Assistive Devices Rolling / Wheeled Walker,Wheelchair Plan OT intervention Plan Bed Mobility,Transfers,Balance,Self care,Safety, Therapeutic Exercise OT Plan Frequency Daily Duration LOS Discharge Goals Bed Mobility Ability Standby Assistance Sit to Stand Chair Contact Guard/Hand Hold Transfer Ability Chair Transfer Contact Guard/Hand Hold Ability Chair Transfer Sit to/from Ambulatory Technique Chair Transfer Rolling Walker Assistive Devices Feeding Ability Assist with Tray Set Up Decrease in No Endurance Discharge Plan OT Discharge Plan At this time, pt presents below baseline and would benefit from skilled acute OT services and interventions in order to address functional limitations in occupational performance while admitted at [facility]. Once DC from [facility], pt could benefit with rehab to further address functional limitations in occupational performance with skilled OT services and interventions. Eval Complexity Eval Charge Codes 48674 - Moderate Complexity PHYSICIAN CERTIFICATION: I certify the specified therapy services for Joy Major are required, authorized, and reviewed every 30 days.
--- NOTE | 2025-08-04 09:40 | PC.NURSE ---
Patient oxygen saturation 88% on room air at rest.
--- NOTE | 2025-08-04 10:00 | HMH.PTEV ---
Physical Therapy Evaluation Rehab PT IP Evaluation Start: 08/03/25 12:39 Freq: ONCE Status: Active Protocol: Document 08/04/25 09:55 MARIUSZ (Rec: 08/04/25 10:00 MARIUSZ [id number]) Subjective/History History History Per H&P: Joy Major is a 75-year-old female with medical history significant for current tobacco smoker, hypothyroidism, iron deficiency anemia, anxiety/ depression who presented with 4-day onset of nonproductive cough. She states it got so bad she proceeded to the ER today. She denies shortness of breath, chest pain, fever/chills, abdominal pain. She states she has no official diagnosis COPD, but has smoked for many years. No inhalers at home. Lives with son at home. Workup in the ED significant for WBC 5.2, compensated VBG, full respiratory panel positive for rhinovirus. CTA chest suggestive of bronchial wall thickening/bronchitis without focal consolidation. She received 1.8 L LR bolus, DuoNebs x 3, Toradol, Solu -Medrol 125 mg, ceftriaxone, azithromycin continues to have recent airway. Requiring 3 L nasal cannula, new requirement. Given these findings, ED provider discussed case with me and decided to admit patient for acute hypoxic respiratory failure secondary to presumed COPD exacerbation. Subjective Subjective Pt with conflicting hx reports. Confirm hx with CM. Pt reports she has been in/out of the hospital and uses a w/c for mbility. Pt reports she hasn't walked in 1 month. Pt also reports she ambulates IND without AD at home. Pt reports she lives in a SS home with her son. [facility] How much help from another person do you currently need... Turning from your None back to your side while in a flat bed without using bedrails? Moving from lying on None back to sitting on the side of a flat bed without using bedrails? Moving to and from a None bed to a chair ( including a wheelchair)? Standing up from a A little chair using your arms? (e.g., wheelchair, bedside chair) Walking in hospital A lot room? Climbing 3-5 steps A lot with a railing? Mobility Score 19 Mobility Level [facility] Mobility 6 Walk 10 steps or more Mobility Calculator Rehab PT IP Eval Objective Appearance Patient Behavior Appropriate,Cooperative Difficulty following mild instructions Speech Pattern Clear Balance Ability to Arise Able, uses arms to help Sitting Balance Steady, safe Standing Balance Steady, wide stance Dynamic Sitting Good Balance Ability Dynamic Standing Poor Balance Ability Transfers Bed Transfer Ability Supervision/Stand by Sit to Stand Bed Minimal x 1 (25% assist) Transfer Ability Rehab PT IP prob,goals,plan Problems Date of Evaluation: 08/04/25 PT IP Problems Bed Mobility,Transfers,Gait,Balance,Self care,Safety Rehab Potential Rehab Potential Good Plan PT Intervention Plan Bed Mobility,Transfers,Gait,Balance,Self care,Safety, Therapeutic Exercise Other Intervention 1-2 times Plan PT Plan Frequency Daily Duration LOS Discharge Goals Bed Transfer Ability Independent Sit to Stand Chair Contact Guard/Hand Hold Transfer Ability Discharge Plan PT Discharge Plan Pt most appropriate for rehabilitation placement to address mobility deficits and maximize safety upon d/c from [facility]. Pt would benefit from skilled PT while at [facility] to prevent further functional decline. Eval Complexity Eval Charge Codes 63858 - Moderate Complexity PHYSICIAN CERTIFICATION: I certify the specified therapy services for Joy Major are required, authorized, and reviewed every 30 days.
--- NOTE | 2025-08-04 12:21 | EXP.PULM.CON ---
History of Present Illness History of present illness: Ms. Roy is a 75-year-old female greater than [id number] smoking history presented today with worsening respiratory distress and pulmonary was called for further evaluation and management. [facility] Disclaimer: The information contained in this section may have been updated after the patient was seen, as this information can be updated by other users. Medical History (Updated 08/04/25 @ 12:23 by Manuel Medeiros MD) Acute and chronic respiratory failure with hypoxia Pneumonia Hypothyroidism Degenerative disc disease, cervical Anemia, iron deficiency GERD (gastroesophageal reflux disease) Diverticula of colon Hyperlipemia Impaired decision making Mood disorder Dementia Cirrhosis of liver HTN (hypertension) Surgical History History of arthroplasty of right hip Social History Smoking Status: Never smoker alcohol intake: never current occupational status: retired Travel in the last 8 weeks?: None Have you lived/traveled outside [place] in past 30 days?: No Contact w/someone who lives/traveled outside US past 30 days?: No Exposure to someone with infectious disease in past 14 days?: No Do you have a fever (greater than 100.4 F or 38 C)?: No Have you tested positive for COVID-19?: No Exposed to someone with COVID-19 in past 14 days?: No Do you have a sore throat?: No Do you have a cough?: No Do you have any weakness?: No Do you have any diarrhea?: No Are you experiencing any unusual bleeding?: No Do you have any muscle aches/pain?: No Do you have any abdominal pain?: No Are you experiencing loss of taste or smell?: No Review of Systems Constitutional Constitutional: Reports anorexia, Reports body ache(s) and Reports fatigue Eyes Eyes: Denies eye discharge, Denies dry eyes, Denies irritation and Denies itchy eyes ENT Ears, Nose, Mouth, and Throat: Denies epistaxis, Denies facial pain, Denies lip swelling and Denies throat swelling *Cardiovascular Cardiovascular: Reports dyspnea and Reports dyspnea on exertion *Respiratory Respiratory: Denies change in phlegm color, Reports chest congestion, Reports cough, Reports dyspnea, Reports dyspnea on exertion, Reports excessive phlegm production, Denies hemoptysis, Denies pain on inspiration, Denies pain with cough and Reports wheezing *Gastrointestinal Gastrointestinal: Denies abdominal pain, Denies belching and Denies cramping *Musculoskeletal Musculoskeletal: Reports back pain, Reports myalgias and Reports other (No small joint swelling or Pain) Psychiatric Psychiatric: Denies homicidal ideation and Denies suicidal ideation Endocrine Endocrine: Reports fatigue and Denies heat intolerance Hematologic/Lymphatic Hematologic/Lymphatic: Denies easy bleeding and Denies lymphadenopathy Allergic/Immunologic Allergic/Immunologic: Denies itchy eyes, Denies lip swelling, Denies throat swelling and Reports wheezing Pulmonology Exam Inpatient Vital signs and Labs for Last 24 Hours: Temp Pulse Resp BP Pulse Ox O2 Del Method O2 Flow Rate 98.3 F 94 H 18 119/60 88 L Nasal Cannula 2 08/04/25 08:00 08/04/25 08:00 08/04/25 08:00 08/04/25 08:00 08/04/25 09:40 08/04/25 11:00 08/04/25 11:00 Laboratory Results - last 24 hr 08/03/25 09:05: TSH 0.48 08/04/25 05:26: WBC 7.7 D, RBC 4.33, Hgb 12.4 D, Hct 39.8, MCV 91.9, MCH 28.9, MCHC 31.4 L, RDW 14.0, Plt Count 157, MPV 10.2, Neut % (Auto) 76.1, Lymph % (Auto) 16.0, [place] % (Auto) 7.3, Eos % (Auto) 0.0 L, Baso % (Auto) 0.1, Neut # (Auto) 5.8, Lymph # (Auto) 1.2, [place] # (Auto) 0.6, Eos # (Auto) 0.0, Baso # (Auto) 0.0, Sodium 142, Potassium 3.6, Chloride 102, Carbon Dioxide 34 H, Anion Gap 9.6, BUN 12, Creatinine 0.70 D, Estimated Creat Clear 48, Estimated GFR 82, Est GFR ( Amer) 99 D, Glucose 116 H, Calcium 9.0, Total Bilirubin 0.5, AST 29, ALT 14, Alkaline Phosphatase 88, Total Protein 6.7, Albumin 4.5, Globulin 2.2, Albumin/Globulin Ratio 2.0 H, Free T4 1.39 I & O for Labs for Last 24 Hours: Intake & Output 08/01/25 08/02/25 08/03/25 08/04/25 23:59 23:59 23:59 23:59 Intake Total 2560.00 / 2560.00 270 / 270 Output Total 0 / 0 Balance 2560.00 / 2560.00 270 / 270 Weight 135 lb 133 lb 8 oz Microbiology Reports for the Last 24 Hours: Microbiology 08/03/25 09:09 Blood Blood Culture - Preliminary NO GROWTH AFTER 24 HOURS 08/03/25 09:04 Blood Blood Culture - Preliminary NO GROWTH AFTER 24 HOURS Constitutional: Present moderate distress Head: Present normocephalic and atraumatic ENT: Present normal exam, normal oropharynx and mucous membranes moist Neck: Present normal inspection and full ROM Respiratory: Present respiratory distress, rhonchi, wheezes and able to speak in complete sentences Cardiac: Present S1/S2, Tachycardia and radial pulses present GI: Present soft and distention; Absent tenderness or guarding Rectal (female): Present deferred (female): Present deferred Skin: Present intact; Absent cyanosis or jaundice Neuro: Present alert, awake and oriented x 3 Extremities: Present normal inspection; Absent clubbing or cyanosis Psychiatric: Present anxious; Absent cooperative Meds Home Medications and Allergies Home Medications ?Medication ?Instructions ?Recorded ?Confirmed ?Type acetaminophen 500 mg capsule 500 mg PO Q8HP PRN Mild Pain 05/01/25 08/03/25 History (Scale Score 1-4) bisacodyl 10 mg rectal suppository 10 mg MD DAILYP PRN Constipation 05/01/25 08/03/25 History ferrous fumarate 324 mg (106 mg 324 mg PO Q48H 05/01/25 08/04/25 History iron) tablet ipratropium 0.5 mg-albuterol 3 mg 3 ml inhalation Q6HP PRN Shortness 05/01/25 08/03/25 History (2.5 mg base)/3 mL nebulization Of Breath soln melatonin 3 mg tablet 6 mg PO HS 05/01/25 08/03/25 History methocarbamol 500 mg tablet 1,000 mg PO QID 05/01/25 08/03/25 History pantoprazole 40 mg tablet,delayed 40 mg PO DAILY 05/01/25 08/03/25 History release (Protonix) quetiapine 100 mg tablet (Seroquel) 100 mg PO HS 05/01/25 08/03/25 History levothyroxine 125 mcg tablet 125 mcg PO DAILY #30 tabs 05/13/25 08/03/25 Rx (Synthroid) gabapentin 100 mg capsule 200 mg (2 x 100 mg) PO TID #180 06/02/25 08/03/25 Rx caps lorazepam 0.5 mg tablet (Ativan) 0.5 mg PO TID 06/11/25 08/03/25 History escitalopram oxalate 5 mg tablet 5 mg PO DAILY 08/03/25 08/03/25 History oxycodone 5 mg tablet 5 mg PO Q6HP PRN Moderate Pain 08/03/25 08/03/25 History (Scale Score 5-6) polyethylene glycol 3350 17 17 g PO DAILYP PRN Constipation 08/03/25 08/03/25 History gram/dose oral powder (Miralax) rosuvastatin 20 mg tablet 20 mg PO HS 08/03/25 08/03/25 History New Prescriptions to Start Prescriptions: Allergies Allergy/AdvReac Type Severity Reaction Status Date / Time levofloxacin (From Levaquin) Allergy Intermediate Verified 07/09/25 16:48 Penicillins (PCN) Allergy Unknown Verified 07/08/25 15:55 Results Laboratory Findings 08/04/25 05:26 08/04/25 05:26 Abnormal lab findings: Abnormal Labs 08/03/25 08/03/25 08/04/25 09:05 09:11 05:26 MCHC 30.8 L 31.4 L Eos % (Auto) 0.0 L VBG pCO2 53.9 H VBG pO2 57.0 H VBG Total CO2 31.4 H VBG O2 Saturation 89.1 H VBG Base Excess 4.3 H Carbon Dioxide 35 H 34 H Glucose 115 H 116 H Albumin/Globulin Ratio 1.9 H 2.0 H Entero/Rhino (PCR) Detected A Assessment and Plan *Assessment and plan (1) COPD exacerbation: Status: Acute Category: Medical Code(s): J44.1 - Chronic obstructive pulmonary disease with (acute) exacerbation (2) Pneumonia: Problem Comment: NEELAM, June 2025 Status: Acute Category: Medical Code(s): J18.9 - Pneumonia, unspecified organism (3) Acute and chronic respiratory failure with hypoxia: Status: Acute Category: Medical Code(s): J96.21 - Acute and chronic respiratory failure with hypoxia Plan Ms. Roy is a 75-year-old female greater than [id number] smoking history presented today with worsening respiratory distress and pulmonary was called for further evaluation and management. CTA no evidence of pulmonary embolism. Bilateral diffuse emphysematous changes. Minimal patchy airspace disease in the right lower lobe along with right lower lobe calcified lung nodule. Comprehensive respiratory viral PCR panel positive for entero and rhinovirus. Afebrile. Hemodynamically stable. No evidence of leukocytosis. Plan: Trelegy 100 inhaler along with DuoNebs 4 times daily as needed Continue oxygen supplementation to maintain O2 saturation goal of 90% and above Continue ceftriaxone Zithromycin pending sputum culture results. Blood no growth 24 hours. Antibiotics can be weaned to cefdinir to complete a total of 5-day course Prednisone 40 mg daily x 5
--- NOTE | 2025-08-04 12:56 | P.DS_ITS ---
<Statement entered by Topher Lovett MD - 08/04/25 17:54> Agree with plan of care as outlined by the [facility]. General Admission date:: 08/03/25 Discharge date: 08/04/25 HPI HPI HPI: Joy Major is a 75-year-old female with medical history significant for current tobacco smoker, hypothyroidism, iron deficiency anemia, anxiety/depression who presented with 4-day onset of nonproductive cough. She states it got so bad she proceeded to the ER today. She denies shortness of breath, chest pain, fever/chills, abdominal pain. She states she has no official diagnosis COPD, but has smoked for many years. No inhalers at home. Lives with son at home. Workup in the ED significant for WBC 5.2, compensated VBG, full respiratory panel positive for rhinovirus. CTA chest suggestive of bronchial wall thickening/bronchitis without focal consolidation. She received 1.8 L LR bolus, DuoNebs x 3, Toradol, Solu-Medrol 125 mg, ceftriaxone, azithromycin continues to have recent airway. Requiring 3 L nasal cannula, new requirement. Given these findings, ED provider discussed case with ms and decided to admit patient for acute hypoxic respiratory failure secondary to presumed COPD exacerbation. Hospital Course Hospital Course Hospital Course: Joy Major is a 75-year-old female with medical history significant for current tobacco smoker, hypothyroidism, iron deficiency anemia, anxiety/depression who presented with 4-day onset of nonproductive cough. She states it got so bad she proceeded to the ER today. She denies shortness of breath, chest pain, fever/chills, abdominal pain. She states she has no official diagnosis COPD, but has smoked for many years. No inhalers at home. Patient resides at [facility]. She has significant memory issues/dementia. Workup in the ED significant for WBC 5.2, compensated VBG, full respiratory panel positive for rhinovirus. CTA chest suggestive of bronchial wall thickening/bronchitis without focal consolidation. She received 1.8 L LR bolus, DuoNebs x 3, Toradol, Solu-Medrol 125 mg, ceftriaxone, azithrom ycin continues to have recent airway. Requiring 3 L nasal cannula, new requirement. Given these findings, ED provider discussed case with hospital medicine and decided to admit patient for acute hypoxic respiratory failure secondary to presumed COPD exacerbation. #Acute hypoxic respiratory failure #Suspected COPD exacerbation #Rhinoviral infection ? Presented with 4-day onset of nonproductive cough, full respiratory panel positive for rhinoviral infection. CTA chest without signs of infection. WBC on admission 5.2, day discharge 7.7. Stable. Blood cultures negative after 24 hours. No electrolyte abnormalities, normal kidney function. ? On admission moderate diffuse wheezing noted with restricted air movement. Day of discharge wheezing and shortness of air have improved. ? At discharge patient should complete prednisone 40 mg x 5 days, cefdinir 300 mg twice daily for a total of 5 days, and start a Trelegy 100 inhaler daily. DuoNebs as needed. ? Patient has a new O2 requirement of 2 L nasal cannula continuously. Room air saturation at rest was 88%. ? Pulmonology consulted and agrees with above plan, will follow-up outpatient for possible PFTs. #Hypothyroidism ?Continue levothyroxine 125 mcg daily, TSH 0.48. #Iron deficiency anemia ?Hemoglobin stable during admission, 12.4, hematocrit 39.8. Continue iron supplement every other day at discharge. #Anxiety/depression #Insomnia ?Continue home medications of escitalopram 5 mg daily, lorazepam 0.5 mg 3 times a day, melatonin 6 mg at bedtime, quetiapine 100 mg at bedtime. #GERD ?Continue pantoprazole 40 mg daily. Continue chronic home medications of rosuvastatin 20 mg at bedtime, oxycodone 5 mg every 6 hours as needed, Robaxin thousand 4 times daily, gabapentin 200 mg 3 times daily, Tylenol and bisacodyl suppositories as needed. Total time spent on discharge 32 minutes in counseling, documentation, chart review, and direct care with patient. Exam Data for Last 24 hours Vital signs and Labs for Last 24 Hours: Temp Pulse Resp BP Pulse Ox O2 Del Method O2 Flow Rate 98.3 F 94 H 18 119/60 88 L Nasal Cannula 2 08/04/25 08:00 08/04/25 08:00 08/04/25 08:00 08/04/25 08:00 08/04/25 09:40 08/04/25 11:00 08/04/25 11:00 Laboratory Results - last 24 hr 08/03/25 09:05: TSH 0.48 08/04/25 05:26: WBC 7.7 D, RBC 4.33, Hgb 12.4 D, Hct 39.8, MCV 91.9, MCH 28.9, MCHC 31.4 L, RDW 14.0, Plt Count 157, MPV 10.2, Neut % (Auto) 76.1, Lymph % (Auto) 16.0, [place] % (Auto) 7.3, Eos % (Auto) 0.0 L, Baso % (Auto) 0.1, Neut # (Auto) 5.8, Lymph # (Auto) 1.2, [place] # (Auto) 0.6, Eos # (Auto) 0.0, Baso # (Auto) 0.0, Sodium 142, Potassium 3.6, Chloride 102, Carbon Dioxide 34 H, Anion Gap 9.6, BUN 12, Creatinine 0.70 D, Estimated Creat Clear 48, Estimated GFR 82, Est GFR ( Amer) 99 D, Glucose 116 H, Calcium 9.0, Total Bilirubin 0.5, AST 29, ALT 14, Alkaline Phosphatase 88, Total Protein 6.7, Albumin 4.5, Globulin 2.2, Albumin/Globulin Ratio 2.0 H, Free T4 1.39 I & O for Last 24 hours: Intake & Output 08/01/25 08/02/25 08/03/25 08/04/25 23:59 23:59 23:59 23:59 Intake Total 2560.00 / 2560.00 270 / 270 Output Total 0 / 0 Balance 2560.00 / 2560.00 270 / 270 Weight 61.235 kg 60.555 kg Microbiology Reports for the Last 24 Hours: Microbiology 08/03/25 09:09 Blood Blood Culture - Preliminary NO GROWTH AFTER 24 HOURS 08/03/25 09:04 Blood Blood Culture - Preliminary NO GROWTH AFTER 24 HOURS Constitutional Constitutional: no acute distress, average body habitus and cooperative *Routine HEENT Exam Head: Present normocephalic Eye: Present EOMI and PERRL ENT: Present mucous membranes moist *Routine Neck Exam Neck: Present supple; Absent lymphadenopathy *Routine Respiratory Exam Respiratory: Present wheezes, normal respiratory effort, able to speak in complete sentences and symmetric chest movement; Absent crackles *Routine Cardiovascular Exam Cardiovascular: Present RRR; Absent murmur *Routine Abdominal Exam Abdominal: Present soft and normoactive bowel sounds; Absent tenderness *Routine Rectal Exam Patient deferred: visual exam *Routine Exam Patient deferred: external exam *Routine Extremities Exam Extremities: Absent cyanosis, clubbing or edema *Routine Skin Exam Skin: Present intact, dry and warm; Absent rash *Routine Neurological Exam Neurological: Present alert and normal speech Comments: Oriented to self?baseline Results Data Completed and Pending Labs on day of discharge: Labs from last 24 hours 08/04/25 08/03/25 05:26 09:05 WBC 7.7 D RBC 4.33 Hgb 12.4 D Hct 39.8 MCV 91.9 MCH 28.9 MCHC 31.4 L RDW 14.0 Plt Count 157 MPV 10.2 Neut % (Auto) 76.1 Lymph % (Auto) 16.0 [place] % (Auto) 7.3 Eos % (Auto) 0.0 L Baso % (Auto) 0.1 Neut # (Auto) 5.8 Lymph # (Auto) 1.2 [place] # (Auto) 0.6 Eos # (Auto) 0.0 Baso # (Auto) 0.0 Sodium 142 Potassium 3.6 Chloride 102 Carbon Dioxide 34 H Anion Gap 9.6 BUN 12 Creatinine 0.70 D Estimated Creat Clear 48 Estimated GFR 82 Est GFR ( Amer) 99 D Glucose 116 H Calcium 9.0 Total Bilirubin 0.5 AST 29 ALT 14 Alkaline Phosphatase 88 Total Protein 6.7 Albumin 4.5 Globulin 2.2 Albumin/Globulin Ratio 2.0 H TSH 0.48 Free T4 1.39 Preliminary micro results at discharge 08/03/25 09:09 Blood Culture - Preliminary Blood NO GROWTH AFTER 24 HOURS 08/03/25 09:04 Blood Culture - Preliminary Blood NO GROWTH AFTER 24 HOURS DS: Diagnosis Discharge Diagnosis (1) COPD exacerbation: Status: Acute Code(s): J44.1 - Chronic obstructive pulmonary disease with (acute) exacerbation (2) Acute and chronic respiratory failure with hypoxia: Status: Acute Code(s): J96.21 - Acute and chronic respiratory failure with hypoxia (3) URI (upper respiratory infection): Status: Acute Code(s): J06.9 - Acute upper respiratory infection, unspecified (4) Rhinovirus infection: Status: Acute Code(s): B34.8 - Other viral infections of unspecified site (5) Hypothyroidism: Status: Acute Code(s): E03.9 - Hypothyroidism, unspecified Meds Home Medications and Allergies Home Medications ?Medication ?Instructions ?Recorded ?Confirmed ?Type acetaminophen 500 mg capsule 500 mg PO Q8HP PRN Mild P ain 05/01/25 08/03/25 History (Scale Score 1-4) bisacodyl 10 mg rectal suppository 10 mg GA DAILYP PRN Constipation 05/01/25 08/03/25 History ferrous fumarate 324 mg (106 mg 324 mg PO Q48H 5 08/04/25 History iron) tablet ipratropium 0.5 mg-albuterol 3 mg 3 ml inhalation Q6HP PRN Shortness 05/01/25 08/03/25 History (2.5 mg base)/3 mL nebulization Of Breath soln melatonin 3 mg tablet 6 mg PO HS 05/01/25 08/03/25 History methocarbamol 500 mg tablet 1,000 mg PO QID 05/01/25 1 10/03/24 History pantoprazole 40 mg tablet,delayed 40 mg PO DAILY 05/0108/03/25 History release (Protonix) quetiapine 100 mg tablet (Seroquel) 100 mg PO HS 05/0108/03/25 History levothyroxine 125 mcg tablet 125 mcg PO DAILY #30 tabs 05/13/25 08/03/25 Rx (Synthroid) gabapentin 100 mg capsule 200 mg (2 x 100 mg) PO TID # 180 06/02/25 08/03/25 Rx caps lorazepam 0.5 mg tablet (Ativan) 0.5 mg PO TID 5 08/03/25 History escitalopram oxalate 5 mg tablet 5 mg PO DAILY 5 08/03/25 History oxycodone 5 mg tablet 5 mg PO Q6HP PRN Moderate Pa in 08/03/25 08/03/25 History (Scale Score 5-6) polyethylene glycol 3350 17 17 g PO DAILYP PRN Constip ation 08/03/25 08/03/25 History gram/dose oral powder (Miralax) rosuvastatin 20 mg tablet 20 mg PO HS 08/03/25 5 History cefdinir 300 mg capsule 300 mg PO BID #6 caps Rx fluticasone fur. 100 mcg-umeclid 1 inh inhalation EDYTA Y #60 ea 08/04/25 Rx 62.5 mcg-vilant 25 mcg inhalat.powder (Trelegy Ellipta) prednisone 20 mg tablet 40 mg (2 x 20 mg) PO DAILY 4 days 08/04/25 Rx #8 tabs New Prescriptions to Start Prescriptions: Kirsten Solis [id number] [Trelegy Ellipta] Kirsten Barbosa prednisone Kirsten Barbosa Allergies Allergy/AdvReac Type Severity Reaction Status Date / Time levofloxacin (From Levaquin) Allergy Intermediate Verified 07/09/25 16:48 Penicillins (PCN) Allergy Unknown Verified 07/08/25 15:55 Discharge Plan Disposition Patient Disposition: er Intermediate Care Fac Condition: Good Discharge Order Discharge Orders: Discharge Order (Routine); Ordered 08/04/25 Ordered By: Kirsten Barbosa Follow up Plan Follow up with: Manuel Medeiros MD [Physician, Pulmonology] - Enter time for follow up Sukumar Monet MD [Primary Care Provider, Family Practice] - Enter time for follow up Prescriptions/Medication Reconciliation: New prednisone 20 mg Tablet 40 mg PO DAILY 4 Days Qty: 8 0RF cefdinir 300 mg capsule 300 mg PO BID Qty: 6 0RF Trelegy Ellipta 100-62.5-25 mcg blister with device 1 inh inhalation DAILY Qty: 60 0RF Continued lorazepam [Ativan] 0.5 mg tablet 0.5 mg PO TID methocarbamol 500 mg tablet 1,000 mg PO QID ipratropium-albuterol 0.5 mg-3 mg(2.5 mg base)/3 mL solution for nebulization 3 ml inhalation Q6HP PRN (Reason: Shortness Of Breath) melatonin 3 mg tablet 6 mg PO HS quetiapine [Seroquel] 100 mg tablet 100 mg PO HS bisacodyl 10 mg suppository 10 mg GA DAILYP PRN (Reason: Constipation) pantoprazole [Protonix] 40 mg tablet,delayed release (DR/EC) 40 mg PO DAILY acetaminophen 500 mg capsule 500 mg PO Q8HP PRN (Reason: Mild Pain (Scale Score 1-4)) ferrous fumarate 324 mg (106 mg iron) tablet 324 mg PO Q48H levothyroxine [Synthroid] 125 mcg tablet 125 mcg PO DAILY Qty: 30 2RF gabapentin 100 mg capsule 200 mg PO TID Qty: 180 5RF polyethylene glycol 3350 [Miralax] 17 gram/dose Powder 17 g PO DAILYP PRN (Reason: Constipation) escitalopram oxalate 5 mg tablet 5 mg PO DAILY oxycodone 5 mg tablet 5 mg PO Q6HP PRN (Reason: Moderate Pain (Scale Score 5-6)) rosuvastatin 20 mg tablet 20 mg PO HS Other Ambulatory Orders: Home Medical Equipment (Routine) Location: None Selected Ordered By: Kirsten Barbosa Problem Reconciliation Problems Reviewed?: Yes Patient Discharge Instructions ACTIVITY: Continue current activity DIET: continue same diet Patient Instructions: DI for Chronic Obstructive Pulmonary Disease, DI for Viral Upper Respiratory Infection in Adults, Stop Light COPD, Stop Light Infection Print Language: Mongolian Providers Primary Care Provider: Sukumar Monet Admit Provider: Topher Lovett Attending Provider: Topher Lovett
--- NOTE | 2025-08-04 16:26 | CT_ITS ---
PROCEDURE INFORMATION: Exam: CT Head Without Contrast Exam date and time: 08/04/2025 4:52 PM Age: 75 years old Clinical indication: Injury or trauma; Fall; Blunt trauma (contusions or hematomas) TECHNIQUE: Imaging protocol: Computed tomography of the head without contrast. Radiation optimization: All CT scans at this facility use at least one of these dose optimization techniques: automated exposure control; mA and/or kV adjustment per patient size (includes targeted exams where dose is matched to clinical indication); or iterative reconstruction. COMPARISON: No relevant prior studies available. FINDINGS: Brain: There is diffuse prominence of the cerebral sulci, cisterns, and ventricles consistent with atrophy. No intra or extra-axial fluid collections are noted. No mass or mass effect is seen. Periventricular white matter hypoattenuation is seen consistent with chronic small vessel disease. Cerebral ventricles: No ventriculomegaly. Paranasal sinuses: Visualized sinuses are unremarkable. No fluid levels. Mastoid air cells: Visualized mastoid air cells are well aerated. Bones: Unremarkable. No acute fracture. Soft tissues: Unremarkable. IMPRESSION: No acute process noted.
--- NOTE | 2025-08-04 16:29 | PC.NURSE ---
Patient had an unwitnessed fall, patient stated she had to get to the phone to turn off the nose. Patient found sitting on the floor in an upright position. No open wounds noted but patient stated she hit her head. No hematomas noted, md aware and home care manager came to assess patient. CT ordered without contrast.
--- NOTE | 2025-08-04 16:42 | PC.NURSE ---
daughter Sabrina notified of fall and patient's plan of care.
[2025-08-04] MEDS: MELATONIN 5MG TABLET 5 MG PO (20:02)
[2025-08-04] MEDS: QUETIAPINE 100MG TABLET 100 MG PO (20:02)
[2025-08-04] MEDS: PANTOPRAZOLE 40MG TABLET 40 MG PO (20:02)
== END 2025-08-04 22:48 ==
LOC: ER 09:37 → 2ND 11:35
PROVIDERS: Admitting Provider Student in an Organized Health Care Education/Training Program; Emergency Provider Student in an Organized Health Care Education/Training Program; PCP Family Medicine; Visit Provider Student in an Organized Health Care Education/Training Program
DX: J44.1 Chronic obstructive pulmonary disease with (acute) exacerbation (principal); J18.9 Pneumonia, unspecified organism; J96.21 Acute and chronic respiratory failure with hypoxia; B34.8 Other viral infections of unspecified site; E03.9 Hypothyroidism, unspecified; J06.9 Acute upper respiratory infection, unspecified; F41.9 Anxiety disorder, unspecified; F32.A Depression, unspecified; G47.00 Insomnia, unspecified; K21.9 Gastro-esophageal reflux disease without esophagitis; E78.5 Hyperlipidemia, unspecified; D50.9 Iron deficiency anemia, unspecified; F39 Unspecified mood [affective] disorder; F17.210 Nicotine dependence, cigarettes, uncomplicated; Z96.641 Presence of right artificial hip joint; Z88.0 Allergy status to penicillin; Z88.1 Allergy status to other antibiotic agents; Z79.51 Long term (current) use of inhaled steroids; Z79.890 Hormone replacement therapy; Z79.899 Other long term (current) drug therapy
CPT/HCPCS: 0223U; 70450; 71045; 71275; 80053; 82803; 83605; 84439; 84443; 84484; 85025; 86803; 87040; 87389; 87636; 93005; 94640; 94761; 96361; 96365; 96367; 96372; 96375; 97162; 97166; 99285; G0378; J0131; J0456; J0696; J1650; J1885; J2919; J7050; J7120; Q9967

== ENCOUNTER 2025-09-24 08:00 | Outpatient (CLI) | payer MEDICARE, SELFPAY ==
[2025-09-24 08:38] LABS: Iron 68 ug/dL (37-170)
[2025-09-24 08:47] LABS: Total Iron Binding Capacity 291 ug/dL (265-497)
[2025-09-24 08:57] LABS: Free T4 (Free Thyroxine) 1.61 ng/dl (0.78-2.19)
[2025-09-24 09:10] LABS: Thyroid Stimulating Hormone 0.06 uIU/mL (0.465-4.68)
[2025-09-24 09:15] LABS: Ferritin 40.5 ng/ml (11.1-264)
== END 2025-09-24 23:59 | disposition home or self-care (01) ==
LOC: LAB.DROPOF 08:05
PROVIDERS: PCP Family Medicine; Visit Provider Nurse Practitioner Family
DX: D50.9 Iron deficiency anemia, unspecified (principal); E03.9 Hypothyroidism, unspecified
CPT/HCPCS: 36415; 82728; 83540; 83550; 84439; 84443